=== PATIENT | female | born 1960 | race Caucasian/White ===

== ENCOUNTER → 2024-06-26 12:38 | Outpatient (REF) | payer BC, SELFPAY | LOC: WDC 12:38 | PROVIDERS: ATTENDING PHYSICIAN Obstetrics & Gynecology Gynecology; FAMILY PHYSICIAN Internal Medicine Geriatric Medicine | DX: Z12.31 Encounter for screening mammogram for malignant neoplasm of breast (principal) | CPT/HCPCS: 77063; 77067 ==

== ENCOUNTER 2024-07-28 11:03 | Emergency (ER) | payer BC, SELFPAY ==
[2024-07-28 11:09] VITALS: BP 164/75
--- NOTE | 2024-07-28 11:49 | ED.GENMED ---
History of Present Illness
<Neyda Cardona PA-C - Last Filed: 07/28/24 17:42>
General
Chief Complaint: Cardiac Symptoms
Source: patient
Exam Limitations: none
Time Seen by Provider: 07/28/24 11:13
Nursing documentation reviewed up to this point in time: agreed with
History of Present Illness
History of Present Illness:
Patient is a 64-year-old female with history hypertension, hyperlipidemia presenting to the emergency department for evaluation of left chest discomfort. Patient states she initially noticed symptoms yesterday morning and describes a sharp pain in
her left lateral chest that has been relatively constant since. Yesterday�patient states that she felt very lightheaded and fatigued throughout the entire day. Pain persists although more mild today.. Patient denies any exertional component to
the symptoms and she was actually able to complete a full [employer] workout yesterday morning without any increasing discomfort. She does report a definitive component to deep inspiration. Few episodes of scattered dry coughing yesterday. She
denies any shortness of breath, fever, back pain, lower extremity pain/edema. No recent trauma.
Patient initially thought symptoms were related to a possible muscular strain as she did golf on Saturday.
Patient denies any history of CAD. No recent travel. No exogenous hormone use. No recent surgery. No personal or family history of blood clots or clotting disorders.
Past History
<Neyda aCrdona PA-C - Last Filed: 07/28/24 17:42>
Past History
ED Past Medical History: None
ED Past Surgical History: Other (Breast biopsy)
Social History
Tobacco: Non-smoker
Alcohol: Occasional
Drug: None
Personal:
Living: with family
Review of Systems
<Neyda Cardona PA-C - Last Filed: 07/28/24 17:42>
Review of Systems
Allergies reviewed?: Yes
All Other Systems: ROS reviewed and negative except as documented in HPI and ROS
Phy Exam
<Neyda Cardona PA-C - Last Filed: 07/28/24 17:42>
Physical Exam
Physical Exam:
Vitals: Hypertensive, otherwise vital signs stable. Afebrile
General: Patient is well appearing, no acute distress. Nontoxic-appearing
Skin: Warm and dry, no rashes or lesions
Head: Normocephalic, atraumatic
Eyes: Sclera nonicteric. EOMs intact. No nystagmus.
Throat: Protecting airway
Neck: Normal ROM, no cervical spine tenderness, no meningismus. Trachea midline
Cardiac: Regular rate and rhythm, no murmurs. Left lateral chest wall nontender to palpation. No overlying rash or ecchymoses.
Pulm: Normal respiratory effort, no wheezes, rales, rhonchi heard on exam.
Abdomen: No abdominal tenderness.
Extremities: No evidence of cyanosis or edema. No erythema or tenderness of bilateral lower extremities. Great distal pulses
Neuro: AAOx3. CN II-XII intact. No focal neurologic deficits.
Psychiatric: Normal affect.
Course
<Neyda Cardona PA-C - Last Filed: 07/28/24 17:42>
Orders/Labs/Results
Orders:
Orders
07/28/24 11:04
EKG [Electrocardiogram (*1)] Urgent
Reason for Study: Chest Pain
EKG- Treatment ONCE
07/28/24 11:42
Ketorolac [Toradol] 15 mg IV NOW STA
07/28/24 12:28
Complete Blood Count/With Diff Urgent
Comprehensive Metabolic Panel Urgent
D-Dimer Urgent
Troponin I Urgent
07/28/24 13:24
CR Chest - 2 Views Urgent
Comment:
Reason For Exam: left sided chest pain
Abnormal Lab Results
07/28/24
12:28
WBC 4.3 L 10^3/uL
(4.8-10.8)
BUN 21 H mg/dl
(7-17)
Glucose 100 H mg/dl
(70-99)
07/28/24 12:28
07/28/24 12:28
Vital Signs
Initial and Last Documented VS:
Initial Vital Signs
Temp Pulse Resp BP Pulse Ox
98.4 F 64 18 164/75 99
07/28/24 11:09 07/28/24 11:09 07/28/24 11:09 07/28/24 11:09 07/28/24 11:09
Last Documented Vital Signs
Temp Pulse Resp BP Pulse Ox
98.2 F 50 16 114/68 100
07/28/24 15:42 07/28/24 15:42 07/28/24 15:42 07/28/24 15:42 07/28/24 15:42
<Grecia Matias, DO - Last Filed: 07/28/24 13:00>
Orders/Labs/Results
Orders:
Orders
07/28/24 11:04
EKG [Electrocardiogram (*1)] Urgent
Reason for Study: Chest Pain
EKG- Treatment ONCE
07/28/24 11:42
Ketorolac [Toradol] 15 mg IV NOW STA
07/28/24 12:28
Complete Blood Count/With Diff Urgent
Comprehensive Metabolic Panel Urgent
D-Dimer Urgent
Troponin I Urgent
07/28/24 13:24
CR Chest - 2 Views Urgent
Comment:
Reason For Exam: left sided chest pain
Abnormal Lab Results
07/28/24
12:28
WBC 4.3 L 10^3/uL
(4.8-10.8)
BUN 21 H mg/dl
(7-17)
Glucose 100 H mg/dl
(70-99)
07/28/24 12:28
07/28/24 12:28
Vital Signs
Initial and Last Documented VS:
Initial Vital Signs
Temp Pulse Resp BP Pulse Ox
98.4 F 64 18 164/75 99
07/28/24 11:09 07/28/24 11:09 07/28/24 11:09 07/28/24 11:09 07/28/24 11:09
Last Documented Vital Signs
Temp Pulse Resp BP Pulse Ox
98.2 F 50 16 114/68 100
07/28/24 15:42 07/28/24 15:42 07/28/24 15:42 07/28/24 15:42 07/28/24 15:42
<Neyda Cardona PA-C - Last Filed: 07/28/24 17:42>
MDM/Problems Addressed
Differential Diagnosis Includes:
Not limited to: Muscular strain, pleurisy, costochondritis, PE, ACS
MDM/Problems Addressed:
64-year-old female presenting with 24 hours of left lateral chest pain. History of lightheadedness and significant fatigue yesterday. Symptoms not exertional. Definitive pleuritic component to pain. No known inciting trauma/injury although
patient was playing golf on Saturday prior to onset of pain. Patient mildly hypertensive on arrival, otherwise vital signs stable. Physical exam as above. Patient very well-appearing, in no apparent distress. Heart regular rate and rhythm. Lungs
are clear bilaterally. Patient is perfusing well with palpable and equal distal pulses in bilateral upper and lower extremities. No focal neurologic deficits noted. EKG without any acute ischemic changes, some nonspecific T wave abnormality and
occasional PVCs. Differential diagnosis broad at this time although considerations include muscular strain, costochondritis, pleurisy versus lower suspicion for ACS. Patient has no clinical findings consistent with DVT or PE risk factors�although
given pleuritic nature to pain and significant lightheadedness yesterday�will check D-dimer. Will check basic labs, troponin. Will give dose of Toradol. Plan for chest x-ray first CTA chest pending D-dimer. Will closely monitor and reassess.
Chronic conditions affecting care:
Hypertension, hyperlipidemia
Acute Exacerbation and/or Progression of Chronic Illness:
Acutely hypertensive
<Neyda Cardona PA-C - Last Filed: 07/28/24 17:42>
*Radiology
Radiology exam reviewed: preliminary read by ED provider (No acute abnormality) and radiology read reviewed
*Pulse Oximetry
Patient hypoxic: no
*EKG
Interpreted by ED Provider?: Yes
EKG Intrepretation Date: 07/28/24
Interpretation: abnormal
Comparison EKG: changes noted
Heart Rate: 60
Rate: bradycardiac
Rhythm: sinus and PVC's
[place]: normal axis
Interval: normal interval
QRS Pattern: normal QRS
Ischemia: non-specific ST changes
*Hat Sizer Interpretation
Rate: Hat Sizer- N/A
*Critical Care Note
Total Time (30-74mins, 75-104mins- exclusive of procedures): Not Applicable
<Neyda Cardona PA-C - Last Filed: 07/28/24 17:42>
Update Note
Update Note:
Update: Labs reviewed. No clinically significant abnormalities. Troponin is negative and given symptoms been constant over the past 24 hours�this is sufficient to rule out acute IL. Fortunately D-dimer is negative. Did proceed with a chest x-ray
which showed no acute abnormalities. Patient remains very well-appearing with some improvement in pain following Toradol. Suspect likely musculoskeletal in origin. Very low suspicion for acute cardiac emergency. Patient has remained
hemodynamically stable in no apparent respiratory distress. Will discharge with close return precautions and primary care follow-up. Patient comfortable with plan. Patient seen with attending physician.
ED Attending Note
<Neyda Cardona PA-C - Last Filed: 07/28/24 17:42>
-
Portions of this chart may have been created with voice recognition software.� Occasional wrong word or��sound alike� substitutions may have occurred due to the inherent limitations of voice recognition software.
<Grecia Matias DO - Last Filed: 07/28/24 13:00>
ED Attending Note
Patient seen and examined by attending physician: Yes
I performed the substantive portion of visit, reviewed & personally made and approve the management plan that is documented in note by myself or KIRSTEN.: Yes
I performed a history and physical exam of patient and discussed management with resident, I reviewed resident's note and agree with documented findings and plan of care.: Yes
ED Attending Note:
64-year-old female with history of hypertension hyperlipidemia presenting for left-sided chest pain. Patient reports symptoms started yesterday, nonexertional. Reports the pain is sharp and stabbing in quality, worse with deep inspiration. Denies
any known inciting injury or trauma. She went to the gym after onset, was able to workout. Denies any difficulty breathing. Denies history of blood clots. Denies known significant history of cardiac disease or family history. Denies cough or
fever. Vitals are normal.
On exam, patient well-appearing, no acute distress or discomfort. Unremarkable cardiac and pulmonary exam, reproducible tenderness to the left mid axillary region of the chest, overlying the rib angle. Suspect a musculoskeletal component to
symptoms. No crepitus. No significant overlying rashes EKG reviewed, nonischemic. Lower suspicion for ACS or PE. Will screen with laboratory analysis. Toradol administered for pain. Likely plan for outpatient follow-up with continued
supportive therapy
Discharge Plan
Departure
Patient Disposition: Home (Routine Discharge)
Date of Disposition: 07/28/24
Time of Disposition: 14:37
Patient with high blood pressure during this ER visit?: Yes
Condition: Good
Covid-19: Not Applicable
Discharge Problem:
Chest pain
Instructions: Chest Pain (DC), BLOOD PRESSURE
Prescriptions:
No Action
multivitamin [Daily Multiple] 1 EACH tablet
1 ea PO DAILY
Referrals:
Miguel Crump MD [Family Provider] - Follow up in 5-7 days
Activity Restrictions/Additional Instructions:
RETURN TO THE EMERGENCY DEPARTMENT WITH ANY FEVERS, PERSISTENT/ WORSENING CHEST PAIN, SHORTNESS OF BREATH, LIGHTHEADEDNESS/DIZZINESS, WORSENING IN CURRENT SYMPTOMS, OR ANY OTHER CONCERNS
-As discussed�you can take Motrin and/or Tylenol as needed for discomfort. Stay well-hydrated. Take it easy over the next 2 days.
-You should limit physical activity that further worsen symptoms.
-Follow-up with your primary care for further evaluation/manage
Monitor your symptoms closely and return to the emergency department any acute worsening/new symptom
Interventions
Interventions:
*Risk Screen - Suicide Last Done: 07/28/24 12:08
*General Assessment Last Done: 07/28/24 12:08
*Neglect/Abuse Screening Last Done: 07/28/24 12:08
ED- Fall Risk Assessment Last Done: 07/28/24 12:08
*ED COVID-19 Vaccine History Last Done: 07/28/24 12:08
*Nursing Disposition Last Done: 07/28/24 15:42
ED- Pulmonary Assessment Last Done: 07/28/24 12:08
ED- Cardiac Assessment Last Done: 07/28/24 12:08
Discharge Date and Time
Discharge Date/Time: 07/28/24 15:35
Print Language: FIJIAN
[2024-07-28 12:08] VITALS: BMI 28.8
[2024-07-28 12:13] VITALS: BP 139/64
[2024-07-28] MEDS: TORADOL 15 MG IV (12:20)
[2024-07-28 12:42] LABS: % Basophils 0.9 % (0-2); % Eosinophils 4.5 % (0-6); % Lymphocytes 35.7 % (20.5-51.1); % Monocytes 7.3 % (1.7-9.3); % Neutrophils 51.6 % (42.2-75.2); Absolute Eosinophils 0.2 10^3/uL (0-0.7); Absolute Lymphocytes 1.5 10^3/uL (1.2-3.4); Absolute Monocytes 0.3 10^3/uL (0.1-0.6); Absolute Neutrophils 2.2 10^3/uL (1.4-6.5); Hematocrit 38.9 % (37.0-47.0); Hemoglobin 13.3 g/dL (12.0-16.0); Mean Corp Hgb Conc. 34.2 g/dL (33.0-37.0); Mean Corpuscular Hgb 29.2 pg (27.0-31.0); Mean Corpuscular Volume 85.5 fL (81.0-99.0); Mean Platelet Volume 10.4 fL (7.4-10.4); Nucleated Red Blood Cells % 0 %; Platelet Count 294 10^3/uL (130-400); Red Blood Cell Count 4.55 10^6/uL (4.20-5.40); Red Cell Dist. Width 12.4 % (11.5-14.5); White Blood Cell Count 4.3 10^3/uL (4.8-10.8)
[2024-07-28 12:57] LABS: ALT (SGPT) 22 U/L (0-35); AST (SGOT) 31 U/L (14-36); Albumin 4.7 g/dl (3.5-5.0); Alkaline Phosphatase 89 U/L (38-126); Blood Urea Nitrogen 21 mg/dl (7-17); Calcium 9.9 mg/dl (8.4-10.2); Carbon Dioxide 27 mmol/L (22-30); Chloride 105 mmol/L (98-107); Estimated Creatinine Clearance 72 ml/min; Glucose 100 mg/dl (70-99); Potassium 4.6 mmol/L (3.5-5.1); Sodium 141 mmol/L (135-145); Total Bilirubin 0.6 mg/dl (0.2-1.3); Total Protein 6.9 g/dl (6.3-8.2); eGFR > 60.00
[2024-07-28 13:00] VITALS: BP 146/74
[2024-07-28 13:08] LABS: Troponin I < 0.012 ng/ml
[2024-07-28 13:19] LABS: D-Dimer < 0.27 ug/mlFEU (0.00-0.50)
[2024-07-28 14:00] VITALS: BP 142/67
[2024-07-28 15:00] VITALS: BP 114/54
--- NOTE | 2024-07-28 15:35 | EDRN ---
Reviewed discharge instructions with patient. Verbalized understanding. Ambulated with steady gait to the lobby.
[2024-07-28 15:42] VITALS: BP 114/68
== END 2024-07-28 15:35 | disposition home or self-care (01) ==
LOC: EMR 11:03
PROVIDERS: Physician Assistant; EMERGENCY PHYSICIAN Student in an Organized Health Care Education/Training Program; FAMILY PHYSICIAN Internal Medicine Geriatric Medicine
DX: R07.89 Other chest pain (principal); I10 Essential (primary) hypertension; E78.5 Hyperlipidemia, unspecified
CPT/HCPCS: 99285; 96374; 71046; 80053; 84484; 85025; 85379; 93005

== ENCOUNTER → 2024-09-25 13:06 | Outpatient (REF) | payer BC, SELFPAY | LOC: HWRAD 13:06 | PROVIDERS: ATTENDING PHYSICIAN Nurse Practitioner Family | DX: M25.551 Pain in right hip (principal) | CPT/HCPCS: 73523 ==

== ENCOUNTER → 2025-06-03 13:37 | Outpatient (REF) | payer BC, SELFPAY | LOC: HWRAD 13:37 | PROVIDERS: ATTENDING PHYSICIAN Nurse Practitioner Family | DX: M54.42 Lumbago with sciatica, left side (principal) | CPT/HCPCS: 72110 ==

== ENCOUNTER → 2025-06-29 16:03 | Outpatient (REF) | payer BC, SELFPAY | LOC: MRI 3T 16:03 | PROVIDERS: ATTENDING PHYSICIAN Nurse Practitioner Family; FAMILY PHYSICIAN Internal Medicine Geriatric Medicine | DX: M54.42 Lumbago with sciatica, left side (principal) | CPT/HCPCS: 72148 ==

== ENCOUNTER → 2025-07-09 12:13 | Outpatient (REF) | payer BC, SELFPAY | LOC: WDC 12:13 | PROVIDERS: ATTENDING PHYSICIAN Obstetrics & Gynecology Gynecology; FAMILY PHYSICIAN Internal Medicine Geriatric Medicine | DX: Z12.31 Encounter for screening mammogram for malignant neoplasm of breast (principal) | CPT/HCPCS: 77063; 77067 ==